=== PATIENT | male | born 2000 | race Caucasian/White ===

== ENCOUNTER 2018-05-25 08:48 | Emergency (ER) | payer SELFPAY ==
[~2018-05-25] VITALS: Ht 162.6 cm; Wt 56.0 kg
[2018-05-25] MEDS ORDERED: ONDANSETRON HCL 4MG TABLET PO ONE (10:45)
[2018-05-25] MEDS ORDERED: LOPERAMIDE 2 MG/10 ML UDC PO ONE (11:00)
[2018-05-25 11:55] VITALS: BP 114/76
== END 2018-05-25 11:57 | disposition home or self-care (01) ==
LOC: ER 08:48
DX: R11.2 Nausea with vomiting, unspecified (principal); R19.7 Diarrhea, unspecified
CPT/HCPCS: 99283; Q0162